=== PATIENT | male | born 1980 | race Caucasian/White ===

== ENCOUNTER 2016-06-16 21:08 | Emergency (ER) | payer OTHER ==
[2016-06-16] MEDS ORDERED: CYCLOBENZAPRINE 10 MG TAB ONE (22:13)
[2016-06-16] MEDS ORDERED: MORPHINE 4 MG/ML SYR ONE (22:14)
[2016-06-16] MEDS ORDERED: KETOROLAC 60 MG/2 ML VIAL IM ONE (22:23)
== END 2016-06-16 23:00 | disposition home or self-care (01) ==
LOC: ER 21:08
CPT/HCPCS: 71020; 96372